=== PATIENT | female | born 2000 | race Caucasian/White ===

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

== ENCOUNTER 2020-04-29 15:10 | Emergency (ER) | payer BC ==
[~2020-04-29] VITALS: Ht 162.6 cm; Wt 97.5 kg
[2020-04-29 15:32] VITALS: Ht 162.6 cm; Wt 97.5 kg
[2020-04-29 16:37] VITALS: BP 123/74
== END 2020-04-29 17:15 | disposition home or self-care (01) ==
LOC: ED 15:10
DX: R05 Cough (principal); Z20.828 Contact with and (suspected) exposure to other viral communicable diseases
CPT/HCPCS: Q0092; U0003-CS